=== PATIENT | female | born 1930 | race African-American/Black ===

== ENCOUNTER 2019-09-27 23:57 | Emergency (ER) | payer OTHER ==
[~2019-09-27] VITALS: Ht 152.4 cm; Wt 56.0 kg
[~2019-09-27 23:57] MED LIST: DOXY100T2 PO
[2019-09-28] MEDS ORDERED: HYDROCODONE/ACETAMINOPHEN 5/325MG TABLET PO ONE (00:45)
[2019-09-28] MEDS ORDERED: LIDOCAINE 5% PATCH TOP SCH (02:15)
[2019-09-28 06:52] VITALS: BP 151/59
== END 2019-09-28 06:52 | disposition home or self-care (01) ==
LOC: ER 23:57
DX: M25.552 Pain in left hip (principal); M54.5 Low back pain; M25.562 Pain in left knee; Z88.6 Allergy status to analgesic agent; Z88.0 Allergy status to penicillin
CPT/HCPCS: 73502; 73700; 99284